=== PATIENT | female | born 1970 | race Caucasian/White ===

== ENCOUNTER 2021-10-11 14:52 | Outpatient (CLI) | payer OTHER, SELFPAY ==
[2021-10-11 23:12] LABS: Chlamydia DNA Amplified* NOT DETECTED (No Detected); GC DNA Amplified* NOT DETECTED (No Detected)
== END 2021-10-11 14:53 | disposition home or self-care (01) ==
PROVIDERS: PCP Physician Assistant Medical; Visit Provider Nurse Practitioner Family
DX: R30.0 Dysuria (principal); R82.90 Unspecified abnormal findings in urine; N89.8 Other specified noninflammatory disorders of vagina; N39.0 Urinary tract infection, site not specified
CPT/HCPCS: 87086; 87186; 87491; 87591

== ENCOUNTER 2021-11-16 17:18 | Outpatient (CLI) | payer OTHER, SELFPAY | END 2021-11-16 17:19 | disposition home or self-care (01) | LOC: LKVREF 11-24 11:03 | PROVIDERS: PCP Physician Assistant Medical; Visit Provider Physician Assistant Medical | DX: N39.0 Urinary tract infection, site not specified (principal) | CPT/HCPCS: 87086; 87186 ==

== ENCOUNTER 2021-12-19 15:40 | Outpatient (CLI) | payer OTHER, SELFPAY | END 2021-12-19 15:41 | disposition home or self-care (01) | LOC: LKVREF 12-21 10:26 | PROVIDERS: PCP Physician Assistant Medical; Visit Provider Student in an Organized Health Care Education/Training Program | DX: N39.0 Urinary tract infection, site not specified (principal) | CPT/HCPCS: 87086; 87186 ==

== ENCOUNTER 2022-02-02 13:39 | Outpatient (CLI) | payer OTHER, SELFPAY ==
--- NOTE | 2022-02-02 13:40 | CRLHL7_ITS ---
For Patients: As a result of the Century Cures Act, medical imaging exams and procedure reports are released immediately into your electronic medical record. You may view this report before your referring provider. If you have questions, please contact your health care provider. BILATERAL SCREENING MAMMOGRAM WITH COMPUTER-AIDED DETECTION AND TOMOSYNTHESIS TECHNIQUE: CC and MLO views were obtained. These mammographic images have been obtained using full-field digital technique. These mammographic images were interpreted with the benefit of computer-aided detection. Breast tomosynthesis was used in this interpretation. COMPARISON FILM: January 2020 diagnostic, 09/02/17 screening, 05/16/16 diagnostic, 09/16/13. FINDINGS: The breasts are heterogeneously dense, which may obscure small masses. IMPRESSION: There is no radiographic evidence for malignancy. ASSESSMENT: BI-RADS Category 2: Benign RECOMMENDATION: Routine screening mammogram in 1 year. A lay language report of this examination will be provided to the patient. ANDREA RAMIREZ M.D. Diagnostic Radiologist [email or web address]/[email or web address] Transcribed: 02/05/2022, 2:[address]/Dictated by: Andrea Ramirez MD @ 02/05/2022 9:33:00 AM (Electronically Signed)
== END 2022-02-02 13:40 | disposition home or self-care (01) ==
LOC: MAMMO 13:45
PROVIDERS: PCP Physician Assistant Medical; Visit Provider Physician Assistant Medical
DX: Z12.31 Encounter for screening mammogram for malignant neoplasm of breast (principal); R92.2 Inconclusive mammogram
CPT/HCPCS: 77063; 77067

== ENCOUNTER 2023-06-10 16:06 | Outpatient (CLI) | payer OTHER, SELFPAY ==
--- OUTSIDE RECORDS SUMMARY | 2023-06-12 07:12 | XMS_ITS | Referral Summary ---
Author Name Unknown Organization [place] Address [address] [place] [address] Care Team Providers Care Microsoft Infrastructure Consultant Name Role Phone Clinic, [facility] Primary Care Provider Allergies No known active allergies Medications Medication Sig Dispensed Refills Start Date End Date Status HYDROcodone-acetaminop hen (NORCO) 5-325 MG per tablet Take 1 tablet by mouth every 6 hours as needed for severe pain Active TRAZODONE HCL PO Active IBUPROFEN PO Active buPROPion (WELLBUTRIN XL) 150 MG 24 hr tablet TAKE 1 TAB BY MOUTH DAILY 5 11/27/2017 Active Active Problems Problem Noted Date Diagnosed Date CARDIOVASCULAR SCREENING; LDL GOAL LESS THAN 160 12/25/2009 Social History Tobacco Use Types Packs/Day Years Used Date Smoking Tobacco: Never Smokeless Tobacco: Never Alcohol Use Standard Drinks/Week Comments Not Asked 0 (1 standard drink = 0.6 oz pur e alcohol) PHQ-2 Answer Date Recorded PHQ-2 Score 0 12/20/2017 Adolescent Education Answer Date Record ed Getting School Help Needed Not on file 12/08 Sex and Gender Information Value Date Recorded Sex Assigned at Not on file Gender Identity Not on file Sexual Orientation Not on file Last Filed Vital Signs Vital Sign Reading Time Taken Comments Blood Pressure 141/93 01/27/2018 1:13 PM RAILROAD CONSTRUCTION DIRECTOR Pulse 111 01/27/2018 1:13 PM RAILROAD CONSTRUCTION DIRECTOR Temperature 36.8 ??C (98.3 ??F) 01/27/2018 1:13 PM CS T Respiratory Rate 16 01/27/2018 1:13 PM RAILROAD CONSTRUCTION DIRECTOR Oxygen Saturation 98% 01/27/2018 1:13 PM RAILROAD CONSTRUCTION DIRECTOR Inhaled Oxygen Concentration - - Weight 51.3 kg (113 lb) 01/27/2018 1:13 PM RAILROAD CONSTRUCTION DIRECTOR Height 157.5 cm (5' 2.01) 01/27/2018 1:13 PM CS T Body Mass Index 20.66 01/27/2018 1:13 PM RAILROAD CONSTRUCTION DIRECTOR Plan of Treatment Not on file Care Teams Microsoft Infrastructure Consultant Relationship Specialty Start Date End Date Clinic, [facility] [address] [facility] [place] [address] PCP - General 12/17/17
--- OUTSIDE RECORDS SUMMARY | 2023-06-12 07:12 | XMS_ITS | Data Portability ---
Author Name Unknown Address [address] [place] [address] Phone [phone] Organization [facility] Address [address] [place] [address] Care Team Providers Care Skin Toggler Name Role Phone MU MCBRIDE Primary Care Provider MU MCBRIDE Referring Provider Assessment No assessment recorded. Plan of Treatment Reminders Order Date Submit Date Provider Last Modified By Organization Details Last Modified Time Details Appointments None recorded. Lab urinalysis , dipstick 2021 022 [facility], [address], [address], [place], [address], 15:46:08 Referral None recorded. Procedures None recorded. Surgeries None recorded. Imaging None recorded. Medication Orders None recorded. Patient TargetsNo targets recorded. Patient Instructions Encounter Date Encounter Id Patient Instructions Last Modified By Organization Details Last Modified Time 02/07/2022 [id number] Melodie presents for UTIs - UA today: trace ketones. On cipro today. Will stop this - in/out cath: 10cc - Has had ~4-5 reported episodes since Sep. I see 1 normal UA, no cultures not available to me. By patient report has had E Coli each time, getting urine tested - Discussed UTI prevention: good perineal hygiene, increasing hydration - Will obtain and take these over the counter supplements: D-mannose (pill/powder), cranberry supplement pills 2x/day (totally 500-1500mg/day), vitamin C 500mg 2x/day, probiotics - ?menopause - no signs/symptoms now, mother went through menopause 45-50's - Cysto, RBUS: will hold for now - Strongly encourage urine testing to direct treatment (PCP office, urgent care, ER, lab visit here) Return in 4 months. Not available 02/07/2022 16:31:07 Reason for Referral None Reported. Results Created Date Observation Date Name Description Value Unit Range Abnormal Flag LastModifiedBy Organization Detail LastModifiedTime 02/08/20 22 02/07/2022 UA WITHO UT MICRO PLYMO UTH color-status yellow yellow Not Available [email or web address] [address] [facility] [address], [place], [address], 02/07/2022 15:46:08 02/08/20 22 02/07/2022 UA WITHO UT MICRO PLYMO UTH clarity-stat us clear clear Not Available [facility] [address] [facility] [address], [place], [address], 02/07/2022 15:46:08 02/08/20 22 02/07/2022 UA WITHO UT MICRO PLYMO UTH glucose-stat us negati ve mg/dL negati ve Not Available [facility] [address] [facility] [address], [place], [address], 02/07/2022 15:46:08 02/08/20 22 02/07/2022 UA WITHO UT MICRO PLYMO UTH bilirubin-ur ine negati ve negati ve Not Available [facility] [address] [facility] [address], [place], [address], 02/07/2022 15:46:08 02/08/20 22 02/07/2022 UA WITHO UT MICRO PLYMO UTH ketones-stat us trace mg/dL negati ve abnormal Not Available [facility] [address] [facility] [address], [place], [address], 02/07/2022 15:46:08 02/08/20 22 02/07/2022 UA WITHO UT MICRO PLYMO UTH SG-status 1.015 1.00-1 .03 Not Available [facility] [address] [facility] [address], [place], [address], 02/07/2022 15:46:08 02/08/20 22 02/07/2022 UA WITHO UT MICRO PLYMO UTH pH-status 8.5 5.00-8 .00 Not Available [facility] [address] [facility] [address], [place], [address], 02/07/2022 15:46:08 02/08/20 22 02/07/2022 UA WITHO UT MICRO PLYMO UTH protein-stat us negati ve mg/dL negati ve Not Available [facility] [address] [facility] [address], [place], [address], 02/07/2022 15:46:08 02/08/20 22 02/07/2022 UA WITHO UT MICRO PLYMO UTH urobilinogen -status 1.0 E.U./d L E.U./ dL 0.2 E.U./d L abnormal Not Available [facility] [address] [facility] [address], [place], [address], 02/07/2022 15:46:08 02/08/20 22 02/07/2022 UA WITHO UT MICRO PLYMO UTH nitrites-sta tus negati ve negati ve Not Available [facility] [address] [facility] [address], [place], [address], 02/07/2022 15:46:08 02/08/20 22 02/07/2022 UA WITHO UT MICRO PLYMO UTH blood-urine negati ve negati ve Not Available [facility] [address] [facility] [address], [place], [address], 02/07/2022 15:46:08 02/08/20 22 02/07/2022 UA WITHO UT MICRO PLYMO UTH leuko-status negati ve negati ve Not Available [facility] [address] [facility] [address], [place], [address], 02/07/2022 15:46:08 02/08/20 22 02/07/2022 UA WITHO UT MICRO PLYMO UTH specimen type voided Not Available [facility] [address] [facility] [address], [place], [address], 02/07/2022 15:46:08 02/08/20 22 02/07/2022 UA WITHO UT MICRO PLYMO UTH performed by charlotte Rosas Not Available [facility] [address], [place], [address], 02/07/2022 15:46:08 02/08/20 22 02/07/2022 UA WITHO UT MICRO PLYMO UTH total urine volume (mL) 15 /mL Not Available [facility] [address] [facility] [address], [place], [address], 02/07/2022 15:46:08 Result Notes None recorded. Problems Name Status Onset Date Resolution Date Notes Provider Name and Address Organization Details Recorded Time Increased frequency of urination Active 02/07/20 22 ANTONINO RICHARDS [address] [place] [address],[address], [address], [facility] 02/06/2022 16:52:56 Urinary tract infectious disease Active 02/07/20 22 ANTONINO RICHARDS [address] [place] [address],[facility] [address], [place], [address], [facility] 02/06/2022 16:53:23 Cystocele Active 02/08/20 22 YEYO SWANN PAC [address] [place] [address],[address], [address], [facility] 02/07/2022 16:20:14 Problem Notes None recorded. Procedures Surgical History Date Name Laterality Status Provider Name and Address Organization Details Recorded Time 02/08/20 22 Past Data Reviewed completed ANTONINO RICHARDS [address] [facility], [place], [address], [facility] 02/06/2022 16:52:30 02/08/20 22 In and Out Catheterization- female completed YEYO SWANN, PAC [address] [facility],[address], [place], [address], [place] [facility] 02/07/2022 16:18:43 Hernia repair w/mesh completed Not Available Health Note 02/07/2022 10:23:33 Partial hysterectomy completed Not Available Health Note 02/07/2022 10:23:33 Imaging Results None recorded. Procedure Notes None recorded. Medical Equipment None Reported. Allergies No known drug allergies Medications Name Sig Start Date Stop Date Status Note LastModified by Organization Details LastModified Time metronidazo le 0.75 % (37.5 mg/5 gram) vaginal gel APPLY 1 APPLICATO RFUL AT BEDTIME FOR 5 DAYS active Not Available Not Available No t Available clonazepam 1 mg tablet TAKE 1 TABLET BY MOUTH AT BEDTIME ONCE NIGHTLY TO AIDE WITH SLEEP active Not Available Not Available No t Available metronidazo le 500 mg tablet TAKE 1 TABLET BY MOUTH EVERY 12 HOURS active Not Available Not Available No t Available ciprofloxac in 500 mg tablet TAKE 1 TAB BY MOUTH EVERY 12 HOURS FOR 7 DAYS FOR RECURRENT UTI active Not Available Not Available No t Available sulfamethox azole 800 mg-trimetho prim 160 mg tablet TAKE 1 TABLET BY MOUTH TWICE A DAY 02/07 completed Not Available Not Available Not Available cephalexin 500 mg capsule TAKE 1 CAPSULE BY MOUTH TWICE A DAY FOR 7DAYS 02/07 completed Not Available Not Available Not Available mirtazapine 30 mg tablet TAKE 1 TABLET BY MOUTH AT BEDTIME ONCE NIGHTLY TO HELP AIDE WITH SLEEP active Not Available Not Available No t Available propranolol 20 mg tablet TAKE 1 TABLET BY MOUTH THREE TIMES A DAY active Not Available Not Available No t Available amoxicillin 875 mg-potassiu m clavulanate 125 mg tablet TAKE 1 TABLET BY MOUTH TWICE A DAY FOR 10 DAYS 02/07 completed Not Available Not Available Not Available mirtazapine active Not Available Not A vailable Not Available Vitals Date Recorded Body mass index (BMI) Body weight Body height Provider Name and Address Organization Details Last Updated DateTime 02/07/2022 19.2 kg/m2 93736.33899 50801 g 157.48 cm Not Available Health Note 02/07/2022 15:35:39 Social History Question Answer Notes LastModified by Organizat ion Details LastModified Time Tobacco Smoking Status Never Smoker Not Available Health Note 02/07/2022 10:23:34 What Is Your Level Of Alcohol Consumption? None [email or web address] Information not available 02/07/2022 What Is Your Level Of Caffeine Consumption? Moderate [email or web address] Information not available 02/07/2022 How Much Tobacco Do You Chew? None [email or web address] Information not available 02/07/2022 Do You Or Have You Ever Used E-cigarettes Or Vape? Never Used Electronic Cigarettes [email or web address] Information not available 02/07/2022 Number Of Pregnancies 6 [email or web address] Information not available 02/07/2022 Number Of Vaginal Deliveries 4 [email or web address] Information not available 02/07/2022 Number Of Caesarean Sections 0 [email or web address] Information not available 02/07/2022 Could You Be ? No [email or web address] Information not available 02/07/2022 What Was The Date Of Your Most Recent Tobacco Screening? 02/07/2022 [email or web address] Information not available 02/07/2022 What Is Your Relationship Status? [email or web address] Information not available 02/07/2022 Are You Sexually Active? Yes [email or web address] Information not available 02/07/2022 Do You Or Have You Ever Used Smokeless Tobacco? Never Used Smokeless Tobacco [email or web address] Information not available 02/07/2022 Do You Use Any Illicit Or Recreational Drugs? No [email or web address] Information not available 02/07/2022 Has Tobacco Cessation Counseling Been Provided? Yes [email or web address] Information not available 02/07/2022 On What Date Was Tobacco Cessation Counseling Provided? 02/07/2022 [email or web address] Information not available 02/07/2022 Do You Or Have You Ever Used Any Other Forms Of Tobacco Or Nicotine? No [email or web address] Information not available 02/07/2022 Sex: Female Functional Status None recorded. Mental Status None recorded. Family History Relationship Description Onset Age of this Age Resolved Age Notes Father Family history of cardiac disorder Paternal Grandfather Family history of cardiac disorder Medical History Condition Response High Blood Pressure N Kidney Stones N Depression Y Lung Disease N GERD/Acid Reflux N Sexually Transmitted Infection N Diabetes N Bleeding Disorder N Cancer N High Cholesterol Y Heart Disease N Gynecological History Statement/Question Response Irregular periods N Leaking urine with intercourse N Heavy periods N Sexually Active? Y Pain with intercourse N Obstetrics History GPAL:G 0 P 0 0 0 0 Immunizations Vaccine Type Date Status Provider Name and Address Organization Details Recorded Time influenza, injectable, quadrivalent 12/24/2016 completed Charlotte boateng [facility] 02/07/2022 15:46:42 influenza, live, intranasal, quadrivalent 12/14/2013 completed Charlotte boateng [facility] 02/07/2022 15:46:42 influenza, unspecified formulation 04/19/2006 completed Charlotte boateng [facility] 02/07/2022 15:46:42 zoster recombinant 09/21/2021 completed Charlotte boateng [facility] 02/07/2022 15:46:42 Tdap 08/08/2012 completed Charlotte boateng [facility] 02/07/2022 15:46:42 Influenza, seasonal, injectable, preservative free 12/05/2010 completed Charlotte boateng [facility] 02/07/2022 15:46:42 Past Encounters Encounter ID Performer Location Encounter Start Date Encounter Closed Date Diagnosis/Indication Diagnosis SNOMED-CT Code [id number] ANTONINO RICHARDS [address] [address] 02/07/2022 15:35:34 02/07/2022 16:33:36 Increased frequency of urination [id number] Urinary tr act infectious disease [id number] Cystocele [id number] Health Concerns Section Related Observation LastModified by Organization Detai ls LastModified Time None Recorded Concern Status LastModified by Organization Details LastModified Time None Recorded Advance Directives Directive None Recorded Payers Encounter Date Sequence Insurance Name Policy Number Policy Naylor Covered Member ID Naylor Member ID Guarantor Name 02/07/2022 1 [employer]) [id number] Melodie Mchugh [id number] Melodie Mchugh Notes Date Note Type Note Provider Name and Address Organization Details Recorded Time 02/07/2022 text/html HPI Notes: Eric woody presents today for UTI symptoms Today on ciprofloxacin for UTi, since last visit. Symptoms include: frequency with small voids, dysuria, cloudy/smelly urine, left back & hip pain. Symptoms mild today without smell Denies: hematuria Symptoms usually better with antibiotics but then recur Has had ~4-5 reported episodes since Sep, not a usual issue for her. I see 1 normal UA, no cultures Had Bactrim for UTI on 10/23. Given course of cephalexin 500mg x 1 week Verbally reports sometimes they see micro-blood, has had E Coli every time. One time had elevated white count, required IM shot Last episode was: 12/19 Triggers: 0 Has not had imaging Baseline voiding: occasional MONICA. nocturia 0, no other issues Hydration: few bottles/water Caffeine: 1 cup coffee/AM Chronic low back pain: some back aching with these UTIs, but otherwise no other known pathology BMs: switches between constipation/diarrh ea Vaginal deliveries: 4 Hx of kidney stones: 0 FHx of malignancies: 0, but mother's side has manuel's (early mortality) s/p vag hyst - adenomyosis 2017. still has ovaries - doesnt think she's gone through menopause. mom 45-50's when menopause? Chief complaint: Recurrent UTI Recurrent UTI's: Diagnosed: 5 Months ago History of: 5 UTI's in the past Prior treatment: 5 courses of antibiotics Associated symptoms: Abdominal Pain, Fever, Back pain, Diarrhea, Pain with urination Worse with: OTHER Better with: Other Severity: Staying the same Interference with their personal, social, or work life: Some Progression: Moderate overall Overactive Bladder Pathway Questionnaire: Uses the restroom: 5 times per day Uses the restroom (nighttime): every 0 hours Accidents: 0 per day Pads: using 0 per day Urogenital Distress Inventory (NIKKI-6): [2]Frequent urination: Moderately [2] Urine leakage related to the feeling of urgency: Moderately [3] Urine leakage related to physical activity, coughing or sneezing: Greatly [2] Small amounts of urine leakage (drops): Moderately [2] Difficulty emptying your bladder: Moderately [2] Pain or discomfort in the lower abdominal or genital area: Moderately Incontinence Impact Questionnaire (IIQ-7): [1] Ability to do member services representative (cooking, housecleaning): Slightly [1] Physical recreation such as walking, or other exercise: Slightly [1] Ability to attend entertainment activities (movie, concerts): Slightly [1] Ability to travel by car more than 30 minutes from home: Slightly [1] Participation in social activities outside your home: Slightly [1] Emotional health (nervousness, depression, etc): Slightly [1] [place] frustrated: Slightly ANTONINO RICHARDS [address] [place] [address],[facility] [address], [place], [address], [facility] 02/07/2022 16:31:13 OBGyn Episode No OBEpisode recorded.
--- OUTSIDE RECORDS SUMMARY | 2023-06-12 07:12 | XMS_ITS | Clinical Summary ---
Author Name Unknown Organization [facility] Address [address], [place] [address] Care Team Providers Care Copra Processor Name Role Phone Audra CHONG MD, Scarlett Barajas Primary Care Provider [phone] Source Comments You are receiving this document as you are listed as the primary care provider,follow-up provider, or the patient has been referred to you for consultation.This is in compliance with the Medicare and[facility] EHR Incentive Program,which states Providers who transition their patient to another setting of careor provider of care or refers their patient to another provider of care shouldprovide summary care record for each transition of care or referral. [facility] Allergies No known active allergies Medications Medication Sig Dispensed Refills Start Date End Date Status FA ORIndications:Bronc hitis None Entered Active IBUPROFEN ORIndications:Bronc hitis None Entered Active unknown medication Indications: PN: 02/29/2004 Active FLUoxetine (AKA PROZAC) 20 MG capsule Take 1 capsule by mouth daily (every 24 hours). LW Addl Instr:Indicated for: Depression 30 3 02/29/2004 Active guaiFENesin-codeine (AKA ROBITUSSIN AC) 100-10 MG/5ML solution Take 5-10 mLs by mouth every 4 hours as needed. LW Comment:cough 120 02/29/2004 Active Vit-Fe Fumarate-FA ( OR) Take 1 tablet by mouth daily (every 24 hours). 100 3 02/29/2004 Active hydrOXYzine HCl (ATARAX) 25 MG tablet Take 1 Tablet by mouth every 6 hours as needed for Anxiety. 20 Tablet 11/06/2020 Active Social History Tobacco Use Types Packs/Day Years Used Date Smoking Tobacco: Never Alcohol Use Standard Drinks/Week Comments Not Asked 0 (1 standard drink = 0.6 oz pur e alcohol) Sex and Gender Information Value Date Recorded Sex Assigned at Not on file Gender Identity Not on file Sexual Orientation Not on file Last Filed Vital Signs Vital Sign Reading Time Taken Comments Blood Pressure 128/96 11/06/2020 8:52 PM CDT Pulse 94 11/06/2020 8:52 PM CDT Temperature 37 ??C (98.6 ??F) 11/06/2020 8:52 PM CDT Respiratory Rate 16 06/23/2008 3:59 PM CDT Oxygen Saturation 99% 11/06/2020 8:52 PM CDT Inhaled Oxygen Concentration - - Weight 49 kg (108 lb) 04/16/2004 11:30 AM EXECUTIVE DIRECTOR SHELTERED WORKSHOP Height - - Body Mass Index - - Plan of Treatment Health Maintenance Due Date Last Done Comments Cervical Cancer Screening Due 1971 Colon Cancer Screening Plan Due 1971 Hep C Screening (Preventive Services) 1971 Mammogram 1971 HIV Screening (Preventive Services) 1987 Adult Preventive Visit 04/27/1989 DTaP/Tdap/Td (1 - Tdap) 04/27/1990 HepB (1) 04/27/1990 Cholesterol 04/27/2016 Zoster/Shingles (1 of 2) 04/27/2021 COVID-19 Vaccine (1 - 2022-2 4 season) 2022 Influenza (#1) 2022 HepA Aged Out No longer eligi ble based on patient's age to complete this topic Hib Aged Out No longer eligi ble based on patient's age to complete this topic IPV (Polio) Aged Out No longer eligi ble based on patient's age to complete this topic MCV4 Aged Out No longer eligi ble based on patient's age to complete this topic Pneumococcal Aged Out No longer eligi ble based on patient's age to complete this topic Care Teams Copra Processor Relationship Specialty Start Date End Date Scarlett Zhu III, MD [address] [place] [address] PCP - General 06/14/09
--- OUTSIDE RECORDS SUMMARY | 2023-06-12 07:12 | XMS_ITS | Clinical Summary ---
Author Name Unknown Organization [facility] Address [address] [place] [address] Care Team Providers Care Tmr Teacher Name Role Phone [facility], [facility] Primary Care Provider Allergies No known active [...] SCREENING; LDL GOAL LESS THAN 160 12/25/2009 Family History Medical History Relation Comments Heart Disease Father Heart Attack Hypertension Father Lipids Father Asthma Sister Thyroid Disease Sister Thyroid Cancer Relation Status Comments Father Maternal Grandfather Maternal Grandmother Mother Alive Paternal Grandfather Paternal Grandmother Sister Alive Social History Tobacco Use Types Packs/Day Years [...] Comments Blood Pressure 141/93 01/27/2018 1:13 PM CHARGE MASTER COORDINATOR Pulse 111 01/27/2018 1:13 PM CHARGE MASTER COORDINATOR Temperature 36.8 ??C (98.3 ??F) 01/27/2018 1:13 PM CS T Respiratory Rate 16 01/27/2018 1:13 PM CHARGE MASTER COORDINATOR Oxygen Saturation 98% 01/27/2018 1:13 PM CHARGE MASTER COORDINATOR Inhaled Oxygen Concentration - - Weight 51.3 kg (113 lb) 01/27/2018 1:13 PM CHARGE MASTER COORDINATOR Height 157.5 cm (5' 2.01) 01/27/2018 1:13 PM CS T Body Mass Index 20.66 01/27/2018 1:13 PM CHARGE MASTER COORDINATOR Plan of Treatment Not on file Care Teams Tmr Teacher Relationship Specialty Start Date End Date Clinic, [address] [id number] PCP - General 12/17/17
== END 2023-06-10 16:07 | disposition home or self-care (01) ==
LOC: NFLDREF 06-12 07:09
PROVIDERS: PCP Family Medicine; Referring Provider Family Medicine; Visit Provider Family Medicine
DX: N30.10 Interstitial cystitis (chronic) without hematuria (principal)
CPT/HCPCS: 87086; 87186

== ENCOUNTER 2024-12-28 14:06 | Outpatient (CLI) | payer OTHER, SELFPAY | END 2024-12-28 14:07 | disposition home or self-care (01) | PROVIDERS: PCP Family Medicine; Visit Provider Family Medicine | DX: Z00.00 Encounter for general adult medical examination without abnormal findings (principal) | CPT/HCPCS: 80053; 80061; 86803 ==